=== PATIENT | male | born 1995 | race Caucasian/White ===

== ENCOUNTER 2024-04-12 14:22 | Outpatient (CLI) | payer MEDICAID, SELFPAY | END 2024-04-12 14:23 | disposition home or self-care (01) | LOC: LKVREF 14:22 | PROVIDERS: PCP Family Medicine; Visit Provider Family Medicine | DX: E78.5 Hyperlipidemia, unspecified (principal) | CPT/HCPCS: 80061 ==

== ENCOUNTER 2025-01-02 20:42 | Outpatient (CLI) | payer MEDICAID, SELFPAY ==
--- NOTE | 2025-01-09 11:29 | W.PM.SLEEP ---
Sleep Study Details Details Interpreting Provider: Kaylin Date of Sleep Study: 01/02/25 Sleep Study Details: STUDY TYPE:? Hospital-based with CPAP titration, attended ? BMI:? 27 ORDERING PROVIDER:? Kaylin INDICATION:? Concern about sleep apnea ? SLEEP SUMMARY:? 341 minutes total sleep time RESPIRATORY SUMMARY:? AHI 29.1 per rule 1A, 14.2 per CMS guideline Supine AHI 89, nonsupine AHI 19.8 Supine REM AHI 46.2 Low oxygen 85, 1.1 minutes oxygen between 80 and 88% CPAP titration performed at a pressure of 5 and this included nonsupine REM stage sleep but decreased AHI to 8.3 per rule 1A PERIODIC LIMB MOVEMENTS OF SLEEP:? None CARDIAC:? Awake 70, asleep 62, no arrhythmias noted IMPRESSION:? Moderate obstructive sleep apnea with supine position and REM dependency. Titration was close but incomplete. RECOMMENDATION: AutoSet CPAP pressure 4-17.
== END 2025-01-02 20:43 | disposition home or self-care (01) ==
LOC: SLEEP 20:42
PROVIDERS: PCP Family Medicine; Visit Provider Otolaryngology
DX: G47.33 Obstructive sleep apnea (adult) (pediatric) (principal)
CPT/HCPCS: 95810

== ENCOUNTER 2025-05-22 14:47 | Outpatient (CLI) | payer MEDICAID, SELFPAY | END 2025-05-22 14:48 | disposition home or self-care (01) | LOC: LKVREF 14:47 | PROVIDERS: PCP Family Medicine; Visit Provider Family Medicine | DX: E78.00 Pure hypercholesterolemia, unspecified (principal) | CPT/HCPCS: 80061 ==